=== PATIENT | female | born 1960 | race Caucasian/White ===

== ENCOUNTER 2016-09-19 14:55 | Outpatient (CLI) | payer OTHER | END 2016-09-19 14:56 | disposition home or self-care (01) | DX: R05 Cough (principal); R50.9 Fever, unspecified ==

== ENCOUNTER 2017-02-18 06:06 | Emergency (ER) | payer OTHER ==
[2017-02-18 06:15] VITALS: BP 141/95
--- NOTE | 2017-02-18 06:17 | ED Physician Documentation ---
PD HPI HEAD INJURY - Stated complaint Stated Complaint: L EYE BROW LAC - Chief complaint Chief Complaint: Laceration - History obtained from History obtained from: Patient - History of Present Illness Mechanism of head injury: Fell Where head injury occurred: Home Timing - onset: Enter time (03:00) Location of injury: Left Contributing factors: No: Anticoagulated, Intoxicated Recently seen: Not recently seen - Additional information Additional information: At approximately 3 AM, patient fell while sleep walking. She thus does not know exactly what caused her to fall, but as soon as she fell, she became aware of the situation and so she knows her face struck the corner of a piece of furniture, causing a facial laceration. Review of Systems Skin: reports: Laceration (s) Musculoskeletal: denies: Neck pain, Back pain Neurologic: reports: Head injury. denies: Headache, LOC PD PAST MEDICAL HISTORY - Past Medical History Past Medical History: No - Past Surgical History Past Surgical History: Yes - Present Medications Home Medications: Ambulatory Orders Medication Instructions Recorded Confirmed traZODone [Desyrel] 100 mg PO HS PRN 11/29/12 02/18/17 Methocarbamol 500 mg PO DAILY 02/18/17 02/18/17 - Allergies Allergies/Adverse Reactions: Allergies Allergy/AdvReac Type Severity Reaction Status Date / Time No Known Drug Allergies Allergy Verified 02/18/17 06:13 - Social History Does the pt smoke?: Yes Smoking Status: Current every day smoker Does the pt drink ETOH?: Yes Does the pt have substance abuse?: No - Immunizations Immunizations are current?: No Immunizations: TDAP >10years/unknown PD ED PE NORMAL - Vitals Vital signs reviewed: Yes - General General: Alert and oriented X 3, No acute distress, Well developed/nourished - HEENT HEENT: PERRL, EOMI - Neck Neck: No bony TTP PD ED PE EXPANDED - HEENT HEENT Visual: 1 - laceration (1.5 cm) Results - Vitals Vitals: Vital Signs - 24 hr 02/18/17 06:10 Temperature 36.5 C Heart Rate 66 Respiratory 16 Rate Blood Pressure 141/95 H O2 Saturation 100 Oxygen O2 Source Room air Procedures - Laceration (location) Face left Length in cm: 1.5 Wound type: Curved Neurovascular status: Sensory intact, Motor intact, Vascular intact Tendon involvement: Tendon intact Anesthesia: Lidocaine 1% Skin layer closure: Nylon, Running, Size #-0 - enter number (6-0) Other: Patient tolerated well, No complications, Neurovascular intact, Tetanus UTD Complexity: Simple PD MEDICAL DECISION MAKING - ED course Complexity details: considered differential, d/w patient Departure - Departure Disposition: 01 Home, Self Care Clinical Impression: Laceration Condition: Good Instructions: ED Laceration Facial Sutr Tape Follow-Up: Noni Garcia PA-C [Primary Care Provider] - (7-10 days for suture removal) Discharge Date/Time: 02/18/17 07:06
[2017-02-18] MEDS ORDERED: LIDOCAINE 1% 2 ML VIAL ONE ×2 (06:23→06:25)
[2017-02-18] MEDS ORDERED: BACITRACIN OINT TOP STA (06:56)
== END 2017-02-18 07:06 | disposition home or self-care (01) ==
LOC: ED 06:06
DX: S01.112A Laceration without foreign body of left eyelid and periocular area, initial encounter (principal); W01.0XXA Fall on same level from slipping, tripping and stumbling without subsequent striking against object, initial encounter; Y92.019 Unspecified place in single-family (private) house as the place of occurrence of the external cause; F17.200 Nicotine dependence, unspecified, uncomplicated
CPT/HCPCS: 12011; 99282; 99283

== ENCOUNTER 2017-02-23 14:25 | Emergency (ER) | payer OTHER ==
[2017-02-23 14:33] VITALS: BP 170/88
[2017-02-23] MEDS ORDERED: LIDOCAINE 1%-EPI 1:100000 20 ML MDV SUBQ STA (14:38)
[2017-02-23] MEDS ORDERED: LIDOCAINE MPF 1%-EPI 1:200000 30 ML VIAL ONE (14:41)
--- NOTE | 2017-02-23 14:53 | ED Physician Documentation ---
History of Present Illness - Stated complaint Stated Complaint: R ARM BRUISING,BUMP - Chief complaint Chief Complaint: General - History obtained from History obtained from: Patient - History of Present Illness Timing: How many weeks ago (1) Pain level max: 3 Pain level now: 3 Improved by: nothing Worsened by: nothing - Additonal information Additional information: Patient is a 56-year-old female who states that she fell one week ago and has noted increased bruising to the right forearm along with a "bump". States that she is concerned that may be infected. Review of Systems Constitutional: denies: Fever, Chills Nose: denies: Rhinorrhea / runny nose, Congestion Respiratory: denies: Cough GI: denies: Abdominal Pain, Nausea, Vomiting, Diarrhea Skin: denies: Rash Musculoskeletal: denies: Neck pain, Back pain Neurologic: denies: Headache PD PAST MEDICAL HISTORY - Past Medical History Neuro: None - Past Surgical History Past Surgical History: Yes - Present Medications Home Medications: Ambulatory Orders Medication Instructions Recorded Confirmed traZODone [Desyrel] 100 mg PO HS PRN 11/29/12 02/23/17 Methocarbamol 500 mg PO DAILY 02/18/17 02/23/17 - Allergies Allergies/Adverse Reactions: Allergies Allergy/AdvReac Type Severity Reaction Status Date / Time No Known Drug Allergies Allergy Verified 02/23/17 14:34 - Social History Does the pt smoke?: Yes Smoking Status: Current every day smoker Does the pt drink ETOH?: Yes Does the pt have substance abuse?: No - Immunizations Immunizations are current?: No Immunizations: TDAP >10years/unknown - POLST Patient has POLST: No PD ED PE NORMAL - Vitals Vital signs reviewed: Yes - General General: Alert and oriented X 3, No acute distress - Derm Derm: Warm and dry - Extremities Extremities: Other (R forearm distal/ventral aspect - 6cm ecchymosis, 0.5x1cm indurated area. NVI.) - Neuro Neuro: Alert and oriented X 3 - Psych Psych: Normal mood, Normal affect Results - Vitals Vitals: Vital Signs - 24 hr 02/23/17 14:31 Temperature 36.7 C Heart Rate 69 Respiratory 15 Rate Blood Pressure 170/88 H O2 Saturation 97 Oxygen O2 Source Room air Procedures - General procedure General procedure: R forearm hematoma - Area was cleansed with ChloraPrep. Anesthetized with 1% lidocaine with epinephrine. Incision made, clot expressed. No infection. Neurovascularly intact. Patient tolerated well PD MEDICAL DECISION MAKING - ED course Complexity details: considered differential, d/w patient ED course: Patient is a 56-year-old female who presents with a hematoma to the right forearm. This was opened as there is concern for infected hematoma. No infection found. Steri-Strips placed over the wound. Tolerated well. Warnings of infection and instructions on wound care given at bedside. Also counseled on how to minimize scarring. Patient counseled regarding signs and symptoms for which I believe and urgent re-evaluation would be necessary. Patient with good understanding of and agreement to plan and is comfortable going home at this time This document was made in part using voice recognition software. While efforts are made to proofread this document, sound alike and grammatical errors may occur. Departure - Departure Disposition: 01 Home, Self Care Clinical Impression: Hematoma Condition: Good Instructions: ED Hematoma Follow-Up: Noni Garcia PA-C [Primary Care Provider] - Within 1 week (for wound check) Comments: Return if you worsen. You can apply warm compresses at home. Your blood pressure was elevated today on check in to the emergency department. This does not mean that you have hypertension, it is a common phenomenon to check into the emergency department and have elevated blood pressure. I recommend that you see your primary care physician within the week to have it rechecked when you're feeling better. Discharge Date/Time: 02/23/17 15:00
== END 2017-02-23 15:00 | disposition home or self-care (01) ==
LOC: ED 14:25
DX: S50.11XA Contusion of right forearm, initial encounter (principal); W19.XXXA Unspecified fall, initial encounter
CPT/HCPCS: 11740; 99282; 99283

== ENCOUNTER 2017-06-10 15:58 | Outpatient (CLI) | payer OTHER ==
[2017-06-10 15:53] LABS: BASOPHILS % (AUTO) 0.5 %; EOSINOPHILS # (AUTO) 0.1 10^3/uL (0.0-0.7); EOSINOPHILS % (AUTO) 1.3 %; HCT - HEMATOCRIT 42.6 % (37.0-47.0); HGB - HEMOGLOBIN 14.6 g/dL (12.0-16.0); LYMPHOCYTES # (AUTO) 1.1 10^3/uL (1.5-3.5); LYMPHOCYTES % (AUTO) 23.1 %; MEAN CORPUSCULAR HGB CONC 34.2 g/dL (32.0-36.0); MEAN CORPUSCULAR VOLUME 90.7 fL (81.0-99.0); MEAN PLATELET VOLUME 8.2 fL (7.9-10.8); MONOCYTES # (AUTO) 0.4 10^3/uL (0.0-1.0); MONOCYTES % (AUTO) 8.1 %; NEUTROPHILS # (AUTO) 3.1 10^3/uL (1.5-6.6); NUCLEATED RED BLOOD CELLS AUTO 0.1 /100WBC; RED CELL DISTRIBUTION WIDTH 13.1 % (12.0-15.0); UNCORRECTED WHITE BLOOD COUNT 4.7 x10^3/uL; WHITE BLOOD COUNT 4.7 x10^3/uL (4.8-10.8)
[2017-06-10 16:05] LABS: ALBUMIN/GLOBULIN RATIO 1.6 (1.0-2.2); BILIRUBIN,TOTAL 0.9 mg/dL (0.2-1.0); CALCIUM 9.4 mg/dL (8.5-10.3); CREATININE 0.7 mg/dL (0.4-1.0); TOTAL PROTEIN 7.1 g/dL (6.7-8.2)
== END 2017-06-10 15:59 | disposition home or self-care (01) ==
LOC: LAB.R 15:58
PROVIDERS: ATTEND Physician Assistant Medical
DX: R10.13 Epigastric pain (principal)
CPT/HCPCS: 80053; 82150; 83690; 85025

== ENCOUNTER 2017-06-15 08:40 | Emergency (ER) | payer OTHER ==
[2017-06-15] MEDS ORDERED: LORazepam 0.5 MG TABLET PO STA (09:09)
[2017-06-15] MEDS ORDERED: SODIUM CHLORIDE 0.9% 1,000 ML IV ONE (09:09)
[2017-06-15] MEDS ORDERED: ONDANSETRON 4 MG/2 ML VIAL IVP STA (09:13)
[2017-06-15] MEDS ORDERED: ONDANSETRON 4 MG/2 ML VIAL ONE (09:17)
[2017-06-15] MEDS ORDERED: LORazepam 2 MG/ML SYRINGE ONE ×2 (09:17→10:43)
[2017-06-15] MEDS ORDERED: LORazepam 0.5 MG TABLET ONE (09:21)
[2017-06-15 09:26] LABS: BASOPHILS % (AUTO) 0.7 %; EOSINOPHILS % (AUTO) 0.6 %; HCT - HEMATOCRIT 42.1 % (37.0-47.0); HGB - HEMOGLOBIN 14.8 g/dL (12.0-16.0); LYMPHOCYTES # (AUTO) 1.4 10^3/uL (1.5-3.5); LYMPHOCYTES % (AUTO) 23.8 %; MEAN CORPUSCULAR HEMOGLOBIN 31.3 pg (27.0-31.0); MEAN CORPUSCULAR HGB CONC 35.2 g/dL (32.0-36.0); MEAN CORPUSCULAR VOLUME 88.9 fL (81.0-99.0); MEAN PLATELET VOLUME 8.6 fL (7.9-10.8); MONOCYTES # (AUTO) 0.5 10^3/uL (0.0-1.0); MONOCYTES % (AUTO) 8.4 %; NEUTROPHILS # (AUTO) 3.8 10^3/uL (1.5-6.6); NEUTROPHILS % (AUTO) 66.5 %; NUCLEATED RED BLOOD CELLS AUTO 0.1 /100WBC; RED BLOOD COUNT 4.74 10^6/uL (4.20-5.40); RED CELL DISTRIBUTION WIDTH 12.7 % (12.0-15.0); UNCORRECTED WHITE BLOOD COUNT 5.8 x10^3/uL; WHITE BLOOD COUNT 5.8 x10^3/uL (4.8-10.8)
[2017-06-15 09:38] LABS: ALBUMIN/GLOBULIN RATIO 1.7 (1.0-2.2); BILIRUBIN,TOTAL 0.7 mg/dL (0.2-1.0); BUN - BLOOD UREA NITROGEN 15 mg/dL (6-20); CARBON DIOXIDE - CO2 22 mmol/L (21-32); CHLORIDE 97 mmol/L (101-111); CREATININE 0.8 mg/dL (0.4-1.0); GFR - MDRD 75 (>89); GLUCOSE 115 mg/dL (70-100); LIPASE 31 U/L (22-51); POTASSIUM 3.5 mmol/L (3.5-5.0); SALICYLATE < 6.0 mg/dL; SODIUM 135 mmol/L (135-145); TOTAL PROTEIN 7.7 g/dL (6.7-8.2)
[2017-06-15 09:49] LABS: ACETAMINOPHEN < 10 ug/mL (10-30)
[2017-06-15] MEDS ORDERED: LORazepam 2 MG/ML SYRINGE IVP STA (09:53)
--- NOTE | 2017-06-15 10:06 | ED Physician Documentation ---
History of Present Illness - Stated complaint Stated Complaint: WITHDRAWLS/VOMITING - Chief complaint Chief Complaint: General - History obtained from History obtained from: Patient (pt states that her last drink was 1 week ago and her last pill was 5 days ago. She staes that she is having withdraws.) Review of Systems Ten Systems: 10 systems reviewed and negative Constitutional: denies: Fever Throat: denies: Sore throat Cardiac: denies: Chest pain / pressure, Palpitations Respiratory: denies: Dyspnea, Cough GI: denies: Nausea, Vomiting, Constipation, Diarrhea : denies: Dysuria, Frequency Skin: denies: Rash, Lesions Psychiatric: reports: Depressed, Anxiety. denies: Suicidal, Homicidal, Hallucinations PD PAST MEDICAL HISTORY - Past Medical History Neuro: None - Past Surgical History Past Surgical History: Yes - Present Medications Home Medications: Ambulatory Orders Medication Instructions Recorded Confirmed traZODone [Desyrel] 100 mg PO HS PRN 11/29/12 06/15/17 Methocarbamol 500 mg PO DAILY 02/18/17 06/15/17 LORazepam [Ativan] 0.5 mg PO Q6H PRN #3 tablet 06/15/17 - Allergies Allergies/Adverse Reactions: Allergies Allergy/AdvReac Type Severity Reaction Status Date / Time No Known Drug Allergies Allergy Verified 06/15/17 08:57 - Social History Does the pt smoke?: Yes Smoking Status: Current every day smoker Does the pt drink ETOH?: Yes Does the pt have substance abuse?: No - Immunizations Immunizations are current?: No Immunizations: TDAP >10years/unknown - POLST Patient has POLST: No PD ED PE NORMAL - Vitals Vital signs reviewed: Yes - General General: Alert and oriented X 3 - HEENT HEENT: Atraumatic, PERRL - Cardiac Cardiac: RRR, No murmur - Respiratory Respiratory: No respiratory distress - Abdomen Abdomen: Soft, Non tender, Non distended - Derm Derm: Normal color, Warm and dry, No rash - Neuro Neuro: Alert and oriented X 3 Eye Opening: Spontaneous Motor: Obeys Commands Verbal: Oriented (anxious) GCS Score: 15 Results - Vitals Vitals: Vital Signs - 24 hr 06/15/17 06/15/17 06/15/17 08:51 10:33 12:00 Temperature 36.6 C 36.9 C 36.6 C Heart Rate 64 700 H 67 Respiratory 20 16 15 Rate Blood Pressure 172/106 H 152/94 H 143/94 H O2 Saturation 100 96 99 Oxygen O2 Source Room air - EKG (time done) 0958 Rate: Rate (enter#) Rhythm: NSR [place]: Normal Intervals: Normal IN, QRS normal QRS: Normal Ischemia: Normal ST segments - Labs Labs: Laboratory Tests 06/15/17 06/15/17 06/15/17 09:00 09:00 09:00 WBC 5.8 RBC 4.74 Hgb 14.8 Hct 42.1 MCV 88.9 MCH 31.3 H MCHC 35.2 RDW 12.7 Plt Count 154 MPV 8.6 Neut # 3.8 Lymph # 1.4 L [place] # 0.5 Eos # 0.0 Baso # 0.0 Absolute Nucleated RBC 0.00 Nucleated RBC % 0.1 Sodium 135 Potassium 3.5 Chloride 97 L Carbon Dioxide 22 Anion Gap 16.0 H BUN 15 Creatinine 0.8 Estimated GFR (MDRD) 75 L Glucose 115 H Calcium 10.0 Total Bilirubin 0.7 AST 27 ALT 30 Alkaline Phosphatase 65 Total Protein 7.7 Albumin 4.8 Globulin 2.9 Albumin/Globulin Ratio 1.7 Lipase 31 HCG, Quant 2.52 Urine Color Urine Clarity Urine pH Ur Specific [place] Urine Protein Urine Glucose (UA) Urine Ketones Urine Occult Blood Urine Nitrite Urine Bilirubin Urine Urobilinogen Ur Leukocyte Esterase Urine RBC Urine WBC Ur Squamous Epith Cells Urine Bacteria Ur Microscopic Review Urine Culture Comments Salicylates < 6.0 Urine Opiates Screen Ur Oxycodone Screen Urine Methadone Screen Ur Propoxyphene Screen Acetaminophen < 10 L Ur Barbiturates Screen Ur Tricyclics Screen Ur Phencyclidine Scrn Ur Amphetamine Screen U Methamphetamines Scrn U Benzodiazepines Scrn Urine Cocaine Screen U Cannabinoids Screen Ethyl Alcohol < 5.0 06/15/17 11:50 WBC RBC Hgb Hct MCV MCH MCHC RDW Plt Count MPV Neut # Lymph # [place] # Eos # Baso # Absolute Nucleated RBC Nucleated RBC % Sodium Potassium Chloride Carbon Dioxide Anion Gap BUN Creatinine Estimated GFR (MDRD) Glucose Calcium Total Bilirubin AST ALT Alkaline Phosphatase Total Protein Albumin Globulin Albumin/Globulin Ratio Lipase HCG, Quant Urine Color YELLOW Urine Clarity CLEAR Urine pH 8.0 H Ur Specific [place] 1.015 Urine Protein NEGATIVE Urine Glucose (UA) NEGATIVE Urine Ketones 15 H Urine Occult Blood NEGATIVE Urine Nitrite NEGATIVE Urine Bilirubin NEGATIVE Urine Urobilinogen 0.2 (NORMAL) Ur Leukocyte Esterase MODERATE H Urine RBC 0-5 Urine WBC 6-10 H Ur Squamous Epith Cells MOD Squamous H Urine Bacteria Rare Ur Microscopic Review INDICATED Urine Culture Comments NOT INDICATED Salicylates Urine Opiates Screen NEGATIVE Ur Oxycodone Screen NEGATIVE Urine Methadone Screen NEGATIVE Ur Propoxyphene Screen NEGATIVE Acetaminophen Ur Barbiturates Screen NEGATIVE Ur Tricyclics Screen NEGATIVE Ur Phencyclidine Scrn NEGATIVE Ur Amphetamine Screen NEGATIVE U Methamphetamines Scrn NEGATIVE U Benzodiazepines Scrn POSITIVE H Urine Cocaine Screen NEGATIVE U Cannabinoids Screen POSITIVE H Ethyl Alcohol PD MEDICAL DECISION MAKING - ED course Complexity details: d/w patient, d/w family ED course: pt w/o SI or HI. is 1 week from last drink and 4 days since last pill. medically cleared. Was evaluated by social work and given resources. No indication for admission today. family will call insurance tomorrow to see who they can go and see. they were given return precautions. Departure - Departure Disposition: 01 Home, Self Care Clinical Impression: Substance abuse, Withdrawal from opioids Condition: Good Instructions: ED Withdrawal Narcotic Follow-Up: Noni Garcia PA-C [Primary Care Provider] - Prescriptions: LORazepam [Ativan] 0.5 mg PO Q6H PRN #3 tablet PRN Reason: Anxiety Comments: Call the numbers you were provided tomorrow for a follow up.
[2017-06-15 12:02] LABS: BILIRUBIN,URINE NEGATIVE (NEGATIVE)
[2017-06-15 12:20] LABS: UA w/ MICROSCOPIC CHARGE YES
[2017-06-15 12:22] LABS: UR CULTURE IF IND NOT INDICATED
[2017-06-15 12:54] VITALS: BP 149/92
== END 2017-06-15 13:04 | disposition home or self-care (01) ==
LOC: ED 08:40
DX: F11.23 Opioid dependence with withdrawal (principal); F17.200 Nicotine dependence, unspecified, uncomplicated
CPT/HCPCS: 36415; 80053; 80306; 80307; 80320; 80329; 81001; 83690; 84702; 85025; 93005; 96361; 96374; 96375; 99284; A9270; J2060; 81003; 87086

== ENCOUNTER 2017-08-07 09:46 | Outpatient (CLI) | payer OTHER ==
[2017-08-07 10:31] LABS: ALBUMIN 4.1 g/dL (3.2-5.5); ALBUMIN/GLOBULIN RATIO 1.6 (1.0-2.2); ALKALINE PHOSPHATASE 50 IU/L (42-121); ALT ALANINE AMINOTRANSFERASE 48 IU/L (10-60); AST ASPARTATE AMINOTRANSFERASE 35 IU/L (10-42); BILIRUBIN,TOTAL 0.6 mg/dL (0.2-1.0); BUN - BLOOD UREA NITROGEN 24 mg/dL (6-20); CARBON DIOXIDE - CO2 30 mmol/L (21-32); CHLORIDE 104 mmol/L (101-111); CREATININE 0.7 mg/dL (0.4-1.0); GFR - MDRD 87 (>89); GLUCOSE 96 mg/dL (70-100); SODIUM 140 mmol/L (135-145); TOTAL PROTEIN 6.7 g/dL (6.7-8.2)
[2017-08-07 11:20] LABS: CRP - C-REACTIVE PROTEIN < 1.0 mg/dL (0-1.0)
[2017-08-07 12:06] LABS: RHEUMATOID FACTOR NEGATIVE (Negative)
[2017-08-09 11:57] LABS: ANA SCREEN NEGATIVE (NEGATIVE)
== END 2017-08-07 09:47 | disposition home or self-care (01) ==
LOC: LAB 09:46
PROVIDERS: ATTEND Physician Assistant Medical
DX: M25.50 Pain in unspecified joint (principal); F41.8 Other specified anxiety disorders; Z79.899 Other long term (current) drug therapy
CPT/HCPCS: 36415; 80053; 84443; 85651; 86038; 86140; 86430

== ENCOUNTER 2017-08-19 14:40 | Emergency (ER) | payer OTHER ==
--- NOTE | 2017-08-19 15:15 | ED Physician Documentation ---
History of Present Illness - Stated complaint Stated Complaint: SLURRED SPEECH - Chief complaint Chief Complaint: General - History obtained from History obtained from: Patient - History of Present Illness Timing: Other (56-year-old woman with history of alcohol abuse in remission presents because her coworkers thought she had slurred speech and was walking funny over the last couple of hours. She feels fine. She is on some new medications but we do not have a complete medication list, she says she has not been drinking.) Review of Systems Ten Systems: 10 systems reviewed and negative Constitutional: denies: Fever, Chills Throat: denies: Dental pain / toothache, Sore throat Cardiac: denies: Chest pain / pressure, Palpitations Respiratory: denies: Dyspnea, Cough PD PAST MEDICAL HISTORY - Past Medical History Neuro: None - Past Surgical History Past Surgical History: Yes - Present Medications Home Medications: Ambulatory Orders Medication Instructions Recorded Confirmed traZODone [Desyrel] 100 mg PO HS PRN 11/29/12 08/19/17 Methocarbamol 500 mg PO DAILY 02/18/17 08/19/17 Generic For Suboxone 08/19/17 Serazone 0 mg DAILY 08/19/17 Serzone 0 mg DAILY 08/19/17 - Allergies Allergies/Adverse Reactions: Allergies Allergy/AdvReac Type Severity Reaction Status Date / Time No Known Drug Allergies Allergy Verified 06/15/17 08:57 - Social History Does the pt smoke?: Yes Smoking Status: Current every day smoker Does the pt drink ETOH?: Yes Does the pt have substance abuse?: No - Immunizations Immunizations are current?: No Immunizations: TDAP >10years/unknown - POLST Patient has POLST: No PD ED PE NORMAL - Vitals Vital signs reviewed: Yes - General General: Alert and oriented X 3, No acute distress - HEENT HEENT: PERRL, EOMI (She has horizontal nystagmus in both directions) - Neck Neck: Supple, no meningeal sign, No bony TTP - Cardiac Cardiac: RRR, No murmur - Respiratory Respiratory: No respiratory distress, Clear bilaterally - Abdomen Abdomen: Normal bowel sounds, Soft, Non tender - Neuro Neuro: Alert and oriented X 3, Normal speech, Other (Normal finger to nose and heel to lyman testing, stroke scale is 0.) Eye Opening: Spontaneous Motor: Obeys Commands Results - Vitals Vitals: Vital Signs - 24 hr 08/19/17 14:43 Temperature 35.9 C L Heart Rate 107 H Respiratory 18 Rate Blood Pressure 122/93 H O2 Saturation 99 Oxygen O2 Source Room air - Labs Labs: Laboratory Tests 08/19/17 08/19/17 08/19/17 14:50 15:46 15:46 WBC 6.5 RBC 4.36 Hgb 13.3 Hct 38.1 MCV 87.2 MCH 30.6 MCHC 35.0 RDW 12.9 Plt Count 108 L MPV 7.6 L Neut # 4.4 Lymph # 1.4 L [place] # 0.4 Eos # 0.2 Baso # 0.0 Absolute Nucleated RBC 0.01 Nucleated RBC % 0.1 Sodium 142 Potassium 4.1 Chloride 105 Carbon Dioxide 26 Anion Gap 11.0 BUN 16 Creatinine 0.8 Estimated GFR (MDRD) 75 L Glucose 96 Calcium 9.5 Total Bilirubin 0.6 AST 25 ALT 32 Alkaline Phosphatase 55 Total Protein 7.1 Albumin 4.3 Globulin 2.8 Albumin/Globulin Ratio 1.5 Lipase 23 Urine Opiates Screen NEGATIVE Ur Oxycodone Screen POSITIVE H Urine Methadone Screen NEGATIVE Ur Propoxyphene Screen NEGATIVE Ur Barbiturates Screen NEGATIVE Ur Tricyclics Screen POSITIVE H Ur Phencyclidine Scrn NEGATIVE Ur Amphetamine Screen NEGATIVE U Methamphetamines Scrn NEGATIVE U Benzodiazepines Scrn POSITIVE H Urine Cocaine Screen NEGATIVE U Cannabinoids Screen POSITIVE H Ethyl Alcohol < 5.0 - Rads (name of study) CT Head Radiology: EMP read contemporaneously (Normal) PD MEDICAL DECISION MAKING - ED course ED course: She was sent from work by coworkers who noticed slurred speech and difficulty walking. Her stroke scale is negative but she does have nystagmus in both directions suggesting a drug or alcohol-related cause. Her head CT is negative , her drug screen is positive for multiple things that cannot be explained by her prescription medications including oxycodone and benzodiazepines. She Denies the ingestion of any of these substances. The tricyclics can be explained probably by the trazodone. Departure - Departure Disposition: 01 Home, Self Care Clinical Impression: Slurred speech, Nystagmus, Positive urine drug screen Condition: Good Record reviewed to determine appropriate education?: Yes Comments: Avoid drugs and alcohol. Return if worse. Follow-up with your physician.
[2017-08-19 15:23] LABS: MUDS CUTOFF CONCENTRATIONS CUTOFF CONC BELOW:
[2017-08-19 15:35] LABS: AMPHETAMINE SCREEN,URINE NEGATIVE (NEGATIVE); BENZODIAZEPINES SCREEN, URINE POSITIVE (NEGATIVE); COCAINE SCREEN URINE NEGATIVE (NEGATIVE); METHADONE SCREEN, URINE NEGATIVE (NEGATIVE); METHAMPHETAMINES SCREEN, URINE NEGATIVE (NEGATIVE); OPIATE SCREEN, URINE NEGATIVE (NEGATIVE); TRICYCLIC ANTIDEPRESSANT,URINE POSITIVE (NEGATIVE)
[2017-08-19 15:36] LABS: OXYCODONE SCREEN, URINE POSITIVE (NEGATIVE); PROPOXYPHENE SCREEN, URINE NEGATIVE (NEGATIVE)
[2017-08-19 15:51] LABS: BASOPHILS % (AUTO) 0.6 %; EOSINOPHILS # (AUTO) 0.2 10^3/uL (0.0-0.7); EOSINOPHILS % (AUTO) 3.7 %; HGB - HEMOGLOBIN 13.3 g/dL (12.0-16.0); LYMPHOCYTES # (AUTO) 1.4 10^3/uL (1.5-3.5); LYMPHOCYTES % (AUTO) 21.2 %; MEAN CORPUSCULAR HEMOGLOBIN 30.6 pg (27.0-31.0); MEAN CORPUSCULAR VOLUME 87.2 fL (81.0-99.0); MEAN PLATELET VOLUME 7.6 fL (7.9-10.8); MONOCYTES # (AUTO) 0.4 10^3/uL (0.0-1.0); MONOCYTES % (AUTO) 6.4 %; NEUTROPHILS # (AUTO) 4.4 10^3/uL (1.5-6.6); NEUTROPHILS % (AUTO) 68.1 %; PLT - PLATELET COUNT 108 10^3/uL (130-450); RED BLOOD COUNT 4.36 10^6/uL (4.20-5.40); RED CELL DISTRIBUTION WIDTH 12.9 % (12.0-15.0); WHITE BLOOD COUNT 6.5 x10^3/uL (4.8-10.8)
--- NOTE | 2017-08-19 15:52 | CT Report ---
EXAM: CT HEAD EXAM DATE: 08/19/2017 03:27 PM. CLINICAL HISTORY: Slurred speech. COMPARISON: None. TECHNIQUE: Multiaxial CT images were obtained from the foramen magnum to the vertex. Reformats: Coron al. IV contrast: None. In accordance with CT protocol optimization, one or more of the following dose reduction techniques w ere utilized for this exam: automated exposure control, adjustment of mA and/or KV based on patient s ize, or use of iterative reconstructive technique. FINDINGS: Parenchyma: No intraparenchymal hemorrhage. No evidence of mass, midline shift, or CT findings of inf arction. Carmichael-white differentiation is distinct. Extraaxial Spaces: Normal for age. No subdural or epidural collections identified. Ventricles: Normal in size and position. Sinuses and Orbits: Imaged paranasal sinuses, orbits, and mastoids show no significant abnormality. Bones: No evidence of fracture or calvarial defect. Other: None. IMPRESSION: Normal head CT. [facility] Referring Provider Line: [phone] SITE ID: [id number]
[2017-08-19 16:02] LABS: ALBUMIN 4.3 g/dL (3.2-5.5); ALBUMIN/GLOBULIN RATIO 1.5 (1.0-2.2); ALKALINE PHOSPHATASE 55 IU/L (42-121); ALT ALANINE AMINOTRANSFERASE 32 IU/L (10-60); AST ASPARTATE AMINOTRANSFERASE 25 IU/L (10-42); BILIRUBIN,TOTAL 0.6 mg/dL (0.2-1.0); BUN - BLOOD UREA NITROGEN 16 mg/dL (6-20); CALCIUM 9.5 mg/dL (8.5-10.3); CARBON DIOXIDE - CO2 26 mmol/L (21-32); CHLORIDE 105 mmol/L (101-111); CREATININE 0.8 mg/dL (0.4-1.0); GFR - MDRD 75 (>89); GLUCOSE 96 mg/dL (70-100); LIPASE 23 U/L (22-51); SODIUM 142 mmol/L (135-145); TOTAL PROTEIN 7.1 g/dL (6.7-8.2)
[2017-08-19 16:22] VITALS: BP 123/95
== END 2017-08-19 16:25 | disposition home or self-care (01) ==
LOC: ED 14:40
DX: R47.81 Slurred speech (principal); H55.00 Unspecified nystagmus; F10.11 Alcohol abuse, in remission; F17.200 Nicotine dependence, unspecified, uncomplicated
CPT/HCPCS: 36415; 70450; 80053; 80306; 80320; 83690; 85025; 99283; 99284

== ENCOUNTER 2017-10-20 09:38 | Emergency (ER) | payer OTHER ==
[2017-10-20] MEDS ORDERED: ONDANSETRON ODT 4 MG TABLET TL STA (10:05)
[2017-10-20 10:15] VITALS: BP 175/99
== END 2017-10-20 10:51 | disposition left against medical advice (07) ==
LOC: ED 09:38
DX: Z53.21 Procedure and treatment not carried out due to patient leaving prior to being seen by health care provider (principal)
CPT/HCPCS: 80053; 83690; 85025; 93005

== ENCOUNTER 2018-06-08 09:32 | Outpatient (CLI) | payer OTHER ==
[2018-06-08 14:07] LABS: BASOPHILS % (AUTO) 0.7 %; EOSINOPHILS # (AUTO) 0.1 10^3/uL (0.0-0.7); EOSINOPHILS % (AUTO) 1.6 %; HGB - HEMOGLOBIN 13.5 g/dL (12.0-16.0); LYMPHOCYTES # (AUTO) 1.6 10^3/uL (1.5-3.5); LYMPHOCYTES % (AUTO) 27.1 %; MEAN CORPUSCULAR HEMOGLOBIN 29.9 pg (27.0-31.0); MEAN CORPUSCULAR VOLUME 85.5 fL (81.0-99.0); MEAN PLATELET VOLUME 9.3 fL (7.9-10.8); MONOCYTES # (AUTO) 0.4 10^3/uL (0.0-1.0); MONOCYTES % (AUTO) 6.1 %; NEUTROPHILS # (AUTO) 3.8 10^3/uL (1.5-6.6); NEUTROPHILS % (AUTO) 64.5 %; PLT - PLATELET COUNT 135 10^3/uL (130-450); RED BLOOD COUNT 4.52 10^6/uL (4.20-5.40); RED CELL DISTRIBUTION WIDTH 12.9 % (12.0-15.0)
[2018-06-08 14:23] LABS: PLATELET MORPHOLOGY NORMAL APPEARANCE (NORMAL)
[2018-06-08 14:32] LABS: ALBUMIN 4.8 g/dL (3.2-5.5); ALBUMIN/GLOBULIN RATIO 1.9 (1.0-2.2); ALKALINE PHOSPHATASE 62 IU/L (42-121); ALT ALANINE AMINOTRANSFERASE 13 IU/L (10-60); AST ASPARTATE AMINOTRANSFERASE 15 IU/L (10-42); BILIRUBIN,TOTAL 1.1 mg/dL (0.2-1.0); BUN - BLOOD UREA NITROGEN 23 mg/dL (6-20); CALCIUM 9.3 mg/dL (8.5-10.3); CARBON DIOXIDE - CO2 29 mmol/L (21-32); CHLORIDE 102 mmol/L (101-111); CHOL/HDL RATIO 2.4 (<4.4); CHOLESTEROL 232 mg/dL; CREATININE 0.8 mg/dL (0.4-1.0); GFR - MDRD 74 (>89); GLUCOSE 103 mg/dL (70-100); HDL CHOLESTEROL 95 mg/dL; LDL CHOLESTEROL,CALCULATED 128 mg/dL; LDL/HDL RATIO 1.3 (<4.4); SODIUM 138 mmol/L (135-145); TOTAL PROTEIN 7.3 g/dL (6.7-8.2); VLDL CHOLESTEROL 9 mg/dL
== END 2018-06-08 09:33 | disposition home or self-care (01) ==
LOC: LAB.R 09:32
PROVIDERS: ATTEND Physician Assistant Medical
DX: Z00.00 Encounter for general adult medical examination without abnormal findings (principal); D69.6 Thrombocytopenia, unspecified
CPT/HCPCS: 80053; 80061; 83721; 84443; 85025

== ENCOUNTER 2018-07-02 10:47 | Outpatient (CLI) | payer OTHER ==
[2018-07-02] MEDS ORDERED: IOVERSOL 320 100 ML VIAL IVP ONE ×2 (10:53→12:28)
[2018-07-02] MEDS ORDERED: IOVERSOL 320 50 ML VIAL ONE (10:53)
--- NOTE | 2018-07-02 12:11 | XRAY Report ---
Reason: TOBACCO DEPENDENCE REMISSION, THORACIC BACK PAIN,W Procedure Date: 07/02/2018 Accession Number: [id number] / [id number] Procedure: XR - Thoracic Spine 2 View CPT Code: FULL RESULT: EXAM: THORACIC SPINE RADIOGRAPHY EXAM DATE: 07/02/2018 11:02 AM. CLINICAL HISTORY: TOBACCO DEPENDENCE REMISSION, THORACIC BACK PAIN. COMPARISON: CHEST 2 VIEW PA/LAT 09/19/2016 3:00 PM. TECHNIQUE: 2 views. FINDINGS: Alignment: There is a mild upper thoracic kyphosis without meaningful single level loss of height which is stable compared to 2017. No spondylolisthesis or scoliosis. Bones: No fractures or bone lesions. Disks: Normal. Disk heights are maintained. Soft Tissues: Normal. The visualized lungs and cardiomediastinal silhouette are normal. IMPRESSION: No abnormality of the lower thoracic spine is detected. [facility]
--- NOTE | 2018-07-02 12:26 | XRAY Report ---
Reason: TOBACCO DEPENDENCE REMISSION, THORACIC BACK PAIN,W Procedure Date: 07/02/2018 Accession Number: [id number] / [id number] Procedure: XR - Chest 2 View X-Ray CPT Code: 59620 FULL RESULT: EXAM: CHEST RADIOGRAPHY EXAM DATE: 07/02/2018 11:02 AM. CLINICAL HISTORY: Tobacco dependence remission, thoracic back pain, with. COMPARISON: CHEST 2 VIEW PA/LAT 09/19/2016 3:00 PM. TECHNIQUE: 2 views. FINDINGS: Lungs/Pleura: No focal opacities evident. No pleural effusion. No pneumothorax. High volumes and relative diaphragmatic flattening. Mediastinum: Heart and mediastinal contours are unremarkable. Other: None. IMPRESSION: Suspect COPD. No superimposed airspace disease. [facility]
[2018-07-02] MEDS ORDERED: IOVERSOL 320 50 ML VIAL PO ONE (12:28)
--- NOTE | 2018-07-02 13:02 | CT Report ---
Reason: WEIGHT LOSS, CHANGE IN BOWEL HABIT Procedure Date: 07/02/2018 Accession Number: [id number] / [id number] Procedure: CT - Abdomen/Pelvis W/ CPT Code: FULL RESULT: EXAM: CT ABDOMEN AND PELVIS EXAM DATE: 07/02/2018 12:23 PM. CLINICAL HISTORY: Weight loss, change in bowel habits. COMPARISONS: None. TECHNIQUE: Routine helical CT imaging was performed through the abdomen and pelvis. IV contrast: ISOVUE 320 80mL. Enteric contrast: Yes. Reconstructions: Coronal and sagittal. In accordance with CT protocol optimization, one or more of the following dose reduction techniques were utilized for this exam: automated exposure control, adjustment of mA and/or KV based on patient size, or use of iterative reconstructive technique. FINDINGS: Lung Bases: Unremarkable. Liver: Hepatic hypodensities which are too small to characterize. No sizable masses. Gallbladder/Bile Ducts: Unremarkable. Spleen: Normal. Pancreas: Normal. Adrenal Glands: Normal. Kidneys: Normal. No masses or hydronephrosis. Peritoneal Cavity/Bowel: Normal. No free fluid, free air or adenopathy. No masses or acute inflammatory process. Pelvic Organs: Normal. The bladder and visualized pelvic organs are within normal limits. Vasculature: There is a prominent left gonadal venous varicosity with dilation, not seen on the right. Bones: Schmorl's node at the superior endplate of L4, no aggressive osseous lesions. Other: None. IMPRESSION: Prominent left gonadal venous varix. This is of uncertain clinical significance but can be seen with pelvic congestion syndrome. [facility]
== END 2018-07-02 10:48 | disposition home or self-care (01) ==
LOC: DI 10:47
PROVIDERS: ATTEND Physician Assistant Medical
DX: M54.6 Pain in thoracic spine (principal); R63.4 Abnormal weight loss; R19.4 Change in bowel habit; F17.201 Nicotine dependence, unspecified, in remission; I86.8 Varicose veins of other specified sites
CPT/HCPCS: 71046; 72070; 74177; Q9967

== ENCOUNTER 2018-09-03 07:52 | Day surgery (SDC) | payer OTHER ==
[~2018-09-03 07:52] MED LIST: LIDO GARGLE 30 ML BOTTLE ONE
[2018-09-03] MEDS ORDERED: LACTATED RINGERS 1,000 ML IV ONE ×2 (08:14→10:37)
[2018-09-03] MEDS ORDERED: MIDAZOLAM 2 MG/2 ML VIAL IVP ONE (09:38)
[2018-09-03] MEDS ORDERED: fentaNYL 250 MCG/5 ML VIAL IVP ONE (09:38)
[2018-09-03] MEDS ORDERED: LIDO GARGLE 30 ML BOTTLE TOP ONE (09:40)
[2018-09-03] MEDS ORDERED: LIDOCAINE-MPF 2% 5 ML VIAL IM ONE (10:15)
[2018-09-03] MEDS ORDERED: PROPOFOL 200 MG/20 ML VIAL IVP ONE (10:15)
[2018-09-03 11:45] VITALS: BP 109/83
== END 2018-09-03 07:53 | disposition home or self-care (01) ==
LOC: SDS 07:52
PROVIDERS: ATTEND Internal Medicine Gastroenterology
PROC: 0DB98ZX Excision of Duodenum, Via Natural or Artificial Opening Endoscopic, Diagnostic (ICD-10-PCS; 2018-09-03)
PROC: 0DB78ZX Excision of Stomach, Pylorus, Via Natural or Artificial Opening Endoscopic, Diagnostic (ICD-10-PCS; 2018-09-03)
PROC: 0D5L8ZZ Destruction of Transverse Colon, Via Natural or Artificial Opening Endoscopic (ICD-10-PCS; principal; 2018-09-03 09:15)
PROC: 0DBE8ZX Excision of Large Intestine, Via Natural or Artificial Opening Endoscopic, Diagnostic (ICD-10-PCS; 2018-09-03 09:15)
DX: K29.50 Unspecified chronic gastritis without bleeding (principal); D12.3 Benign neoplasm of transverse colon; K92.0 Hematemesis; R19.7 Diarrhea, unspecified; K59.00 Constipation, unspecified; I10 Essential (primary) hypertension; G89.29 Other chronic pain; M54.9 Dorsalgia, unspecified; G47.00 Insomnia, unspecified; G25.81 Restless legs syndrome; F32.9 Major depressive disorder, single episode, unspecified; M25.561 Pain in right knee; F10.11 Alcohol abuse, in remission; F11.11 Opioid abuse, in remission; Z79.1 Long term (current) use of non-steroidal anti-inflammatories (NSAID); Z87.891 Personal history of nicotine dependence
CPT/HCPCS: 43239; 45380; A9270; J3010; J7120

== ENCOUNTER 2018-09-10 13:01 | Outpatient (CLI) | payer OTHER ==
--- NOTE | 2018-09-10 16:03 | Mammography Report ---
Reason: MAMMOGRAPHIC SCREENING FOR BREAST CANCER Procedure Date: 09/10/2018 Accession Number: [id number] / [id number] Procedure: MARÍA - Screening Mammo w/Abdulkadir CPT Code: FULL RESULT: EXAM: Screening Mammo w/Abdulkadir DATE: 09/10/2018 2:27 PM CLINICAL HISTORY: Routine screening. History of prior right breast surgery. TECHNIQUE: Bilateral CC and MLO views were obtained. COMPARISON: 01/26/2016, 08/03/2014, 02/22/2013 and 05/10/2011 FINDINGS: There are scattered fibroglandular densities. Stable postbiopsy architectural distortion right breast 12:00 position. Stable biopsy clip left breast 12:00 position. No suspicious masses, clustered microcalcifications, or new regions of architectural distortion are identified. IMPRESSION: Benign findings RECOMMENDATION: Routine annual screening unless otherwise clinically indicated. BIRADS CATEGORY 2: Benign findings STANDARD QUALIFYING STATEMENTS: 1. This examination was not reviewed with the aid of Computer-Aided Detection (CAD). 2. A negative or benign imaging report should not preclude biopsy if clinically suspicious findings are present. 3. Dense breasts may obscure an underlying neoplasm. 4. This examination was reviewed with the aid of 3D breast imaging (tomosynthesis).
== END 2018-09-10 13:02 | disposition home or self-care (01) ==
LOC: DI 13:01
PROVIDERS: ATTEND Physician Assistant Medical
DX: Z12.31 Encounter for screening mammogram for malignant neoplasm of breast (principal)
CPT/HCPCS: 77063; 77067

== ENCOUNTER 2020-07-06 19:40 | Outpatient (CLI) | payer OTHER | END 2020-07-06 19:41 | disposition home or self-care (01) | LOC: COV 19:40 | PROVIDERS: ATTEND Family Medicine | DX: M79.10 Myalgia, unspecified site (principal); R53.83 Other fatigue; R68.83 Chills (without fever); R11.2 Nausea with vomiting, unspecified; Z20.828 Contact with and (suspected) exposure to other viral communicable diseases ==

== ENCOUNTER 2020-07-24 08:00 | Outpatient (CLI) | payer OTHER ==
[2020-07-24 17:59] LABS: BASOPHILS % (AUTO) 0.5 %; EOSINOPHILS # (AUTO) 0.1 10^3/uL (0.0-0.7); EOSINOPHILS % (AUTO) 1.4 %; HGB - HEMOGLOBIN 11.4 g/dL (12.0-16.0); LYMPHOCYTES # (AUTO) 1.1 10^3/uL (1.5-3.5); LYMPHOCYTES % (AUTO) 28.8 %; MEAN CORPUSCULAR HEMOGLOBIN 26.4 pg (27.0-31.0); MEAN CORPUSCULAR VOLUME 85.2 fL (81.0-99.0); MEAN PLATELET VOLUME 10.2 fL (7.9-10.8); MONOCYTES # (AUTO) 0.3 10^3/uL (0.0-1.0); NEUTROPHILS # (AUTO) 2.2 10^3/uL (1.5-6.6); PLT - PLATELET COUNT 109 10^3/uL (130-450); RED BLOOD COUNT 4.32 10^6/uL (4.20-5.40); WHITE BLOOD COUNT 3.6 x10^3/uL (4.8-10.8)
[2020-07-24 18:15] LABS: ALBUMIN 3.9 g/dL (3.2-5.5); ALBUMIN/GLOBULIN RATIO 1.5 (1.0-2.2); ALKALINE PHOSPHATASE 90 IU/L (42-121); ALT ALANINE AMINOTRANSFERASE 10 IU/L (10-60); AST ASPARTATE AMINOTRANSFERASE 11 IU/L (10-42); BILIRUBIN,TOTAL 0.4 mg/dL (0.2-1.0); BUN - BLOOD UREA NITROGEN 16 mg/dL (6-20); CALCIUM 8.2 mg/dL (8.5-10.3); CARBON DIOXIDE - CO2 27 mmol/L (21-32); CHLORIDE 103 mmol/L (101-111); CHOL/HDL RATIO 2.9 (<4.4); CHOLESTEROL 250 mg/dL; CREATININE 0.8 mg/dL (0.4-1.0); GLUCOSE 90 mg/dL (70-100); HDL CHOLESTEROL 87 mg/dL; LDL CHOLESTEROL,CALCULATED 143 mg/dL; LDL/HDL RATIO 1.6 (<4.4); SODIUM 137 mmol/L (135-145); TOTAL PROTEIN 6.5 g/dL (6.7-8.2); VLDL CHOLESTEROL 20 mg/dL
== END 2020-07-24 23:59 | disposition home or self-care (01) ==
LOC: LAB.WCP 08:00
PROVIDERS: ATTEND Nurse Practitioner
DX: I10 Essential (primary) hypertension (principal); E55.9 Vitamin D deficiency, unspecified
CPT/HCPCS: 36415; 80053; 80061; 82306; 83721; 84443; 85025

== ENCOUNTER 2020-09-04 08:00 | Outpatient (CLI) | payer OTHER ==
--- NOTE | 2020-09-04 09:31 | XRAY Report ---
PROCEDURE: Wrist 3 View BILAT INDICATIONS: CARPAL TUNNEL SYNDROME, BILATERAL TECHNIQUE: 4 views of the wrist were acquired. COMPARISON: None FINDINGS: Bones: No fractures or dislocations. Mild osteoarthritic changes are noted along radial aspect of bi lateral wrists with joint space narrowing and subchondral sclerosis more prominent at radiocarpal [place] nts and right first CMC joint. No bony erosive changes are seen. No suspicious bony lesions. Scaphoid view: No evidence of avascular necrosis. Soft tissues: No suspicious soft tissue calcifications. 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 No wrist fracture or dislocation. No bony erosive changes. No gross soft tissue abnormality is seen. Reviewed by: Jameel Adamson MD on 09/04/2020 9:29 AM PST Approved by: Jameel Adamson MD on 09/04/2020 9:29 AM PST Station ID: [id number]
== END 2020-09-04 23:59 | disposition home or self-care (01) ==
LOC: DI.N 08:00
PROVIDERS: ATTEND Orthopaedic Surgery
DX: G56.03 Carpal tunnel syndrome, bilateral upper limbs (principal); M19.032 Primary osteoarthritis, left wrist; M19.031 Primary osteoarthritis, right wrist

== ENCOUNTER 2021-07-19 09:21 | Outpatient (CLI) | payer OTHER ==
--- NOTE | 2021-07-19 15:55 | XRAY Report ---
PROCEDURE: Hand 3 View RT INDICATIONS: RIGHT HAND PAIN TECHNIQUE: 3 views of the hand(s) acquired. COMPARISON: None FINDINGS: Bones: Nondisplaced oblique fracture of the fourth metacarpal. Soft tissues: No suspicious soft tissue calcifications. IMPRESSION: Nondisplaced fourth metacarpal fracture. Reviewed by: Dora Pittman MD, PhD on 07/19/2021 3:53 PM PST Approved by: Dora Pittman MD, PhD on 07/19/2021 3:53 PM PST Station ID: [id number]
== END 2021-07-19 23:59 | disposition home or self-care (01) ==
LOC: DI.N 09:21
PROVIDERS: ATTEND Physician Assistant
DX: S62.394A Other fracture of fourth metacarpal bone, right hand, initial encounter for closed fracture (principal)

== ENCOUNTER 2021-11-15 10:25 | Outpatient (CLI) | payer OTHER ==
--- NOTE | 2021-11-15 17:10 | Ultrasound Report ---
PROCEDURE: Ext Limited Non Vascular INDICATIONS: LEFT LEG PAIN TECHNIQUE: Real-time scanning was performed of the lower leg , with image documentation. COMPARISON: Left lower extremity Doppler ultrasound 07/27/2021. FINDINGS: Ultrasound evaluation of the left lateral mid calf region and the superior medial calf region in the areas of pain demonstrates no discrete fluid collection to suggest a hematoma. No discrete mass ident ified. IMPRESSION: 1. No discrete mass or fluid collections identified in the areas of clinical concern. If clinically indicated, further evaluation may be obtained with MRI. Reviewed by: Davon Ugalde MD on 11/15/2021 5:08 PM PDT Approved by: Davon Ugalde MD on 11/15/2021 5:08 PM PDT Station ID: [id number]
== END 2021-11-15 10:26 | disposition home or self-care (01) ==
LOC: DI 10:25
PROVIDERS: ATTEND Physician Assistant
DX: M79.605 Pain in left leg (principal); M79.9 Soft tissue disorder, unspecified

== ENCOUNTER → 2022-01-22 | Outpatient (CLI) | payer OTHER | END | disposition EMS.NT | LOC: EMS 09:06 | DX: R06.09 Other forms of dyspnea (principal); R09.89 Other specified symptoms and signs involving the circulatory and respiratory systems; R05.9 Cough, unspecified ==

== ENCOUNTER 2022-01-24 10:55 | Outpatient (CLI) | payer OTHER ==
--- NOTE | 2022-01-24 13:51 | XRAY Report ---
PROCEDURE: Chest 2 View X-Ray INDICATIONS: UPPER RESPRITORY INFECTION TECHNIQUE: 2 view(s) of the chest. COMPARISON: 07/02/2018 FINDINGS: Surgical changes and devices: None. Lungs and pleura: No pleural effusions or pneumothorax. Lungs are clear. Mediastinum: Mediastinal contours are normal. Heart size is normal. Bones and chest wall: No suspicious bony abnormalities. Soft tissues appear unremarkable. IMPRESSION: Chest without acute cardiopulmonary abnormalities. No focal consolidation seen. Reviewed by: Mario Camp MD on 01/24/2022 1:50 PM PDT Approved by: Mario Camp MD on 01/24/2022 1:50 PM PDT Station ID: [id number]
== END 2022-01-24 10:56 | disposition home or self-care (01) ==
LOC: DI 10:55
PROVIDERS: ATTEND Physician Assistant Medical
DX: J06.9 Acute upper respiratory infection, unspecified (principal)

== ENCOUNTER 2022-01-25 09:38 | Outpatient (CLI) | payer OTHER ==
[2022-01-25 09:57] LABS: BASOPHILS % (AUTO) 0.6 %; EOSINOPHILS # (AUTO) 0.2 10^3/uL (0.0-0.7); EOSINOPHILS % (AUTO) 4.3 %; HCT - HEMATOCRIT 35.9 % (37.0-47.0); HGB - HEMOGLOBIN 10.9 g/dL (12.0-16.0); LYMPHOCYTES # (AUTO) 1.1 10^3/uL (1.5-3.5); LYMPHOCYTES % (AUTO) 22.2 %; MEAN CORPUSCULAR HEMOGLOBIN 22.9 pg (27.0-31.0); MEAN CORPUSCULAR HGB CONC 30.4 g/dL (32.0-36.0); MEAN CORPUSCULAR VOLUME 75.6 fL (81.0-99.0); MEAN PLATELET VOLUME 9.6 fL (7.9-10.8); MONOCYTES # (AUTO) 0.4 10^3/uL (0.0-1.0); MONOCYTES % (AUTO) 8.1 %; NEUTROPHILS # (AUTO) 3.1 10^3/uL (1.5-6.6); NEUTROPHILS % (AUTO) 64.6 %; PLT - PLATELET COUNT 189 10^3/uL (130-450); RED BLOOD COUNT 4.75 10^6/uL (4.20-5.40); RED CELL DISTRIBUTION WIDTH 16.5 % (12.0-15.0); WHITE BLOOD COUNT 4.8 x10^3/uL (4.8-10.8)
[2022-01-25 10:24] LABS: ALBUMIN 3.7 g/dL (3.2-5.5); ALBUMIN/GLOBULIN RATIO 1.2 (1.0-2.2); ALKALINE PHOSPHATASE 71 IU/L (42-121); ALT ALANINE AMINOTRANSFERASE 11 IU/L (10-60); AST ASPARTATE AMINOTRANSFERASE 12 IU/L (10-42); BILIRUBIN,TOTAL 0.3 mg/dL (0.2-1.0); BUN - BLOOD UREA NITROGEN 24 mg/dL (6-20); CALCIUM 8.8 mg/dL (8.5-10.3); CARBON DIOXIDE - CO2 31 mmol/L (21-32); CHLORIDE 101 mmol/L (101-111); CHOL/HDL RATIO 2.6 (<4.4); CHOLESTEROL 205 mg/dL; CREATININE 0.7 mg/dL (0.4-1.0); GFR - MDRD 86 (>89); GLUCOSE 105 mg/dL (70-100); HDL CHOLESTEROL 79 mg/dL; LDL CHOLESTEROL,CALCULATED 105 mg/dL; LDL/HDL RATIO 1.3 (<4.4); POTASSIUM 4.5 mmol/L (3.5-5.0); SODIUM 140 mmol/L (135-145); TOTAL PROTEIN 6.7 g/dL (6.7-8.2); TRIGLYCERIDES 104 mg/dL; VLDL CHOLESTEROL 21 mg/dL
[2022-01-25 10:36] LABS: THYROID STIMULATING HORMONE 0.51 uIU/mL (0.34-5.60)
[2022-01-25 12:47] LABS: ESTIMATED AVERAGE GLUCOSE 131 mg/dL (70-100); HEMOGLOBIN A1c% 6.2 % (4.27-6.07)
== END 2022-01-25 09:39 | disposition home or self-care (01) ==
LOC: LAB 09:38
PROVIDERS: ATTEND Physician Assistant
DX: E78.5 Hyperlipidemia, unspecified (principal); Z13.9 Encounter for screening, unspecified; E55.9 Vitamin D deficiency, unspecified; Z13.1 Encounter for screening for diabetes mellitus; Z13.29 Encounter for screening for other suspected endocrine disorder
CPT/HCPCS: 36415; 80053; 80061; 82306; 83036; 83721; 84443; 85025

== ENCOUNTER 2022-10-18 09:47 | Outpatient (CLI) | payer OTHER ==
--- NOTE | 2022-10-21 13:45 | Mammography Report ---
BILATERAL DIGITAL SCREENING MAMMOGRAM 3D/2D: 10/18/2022 CLINICAL: Routine screening. Comparison is made to exams dated: 09/10/2018 mammogram, 01/26/2016 mammogram, and 07/28/2014 mammogram - [facility]. Both breasts are heterogeneously dense, which may obscure small masses (category c / 51-75% glandular tissue). There is a benign calcification in the right breast. There also are benign calcifications in the lef t breast. Additionally, there are benign post operative findings in the right breast. Additionally, there also is a biopsy clip in the left breast. No significant masses, calcifications, or other findings are seen in either breast. There has been no significant interval change. IMPRESSION: BENIGN There is no mammographic evidence of malignancy. A 1 year screening mammogram is recommended. Based on the Tyrer Cuzick model (a risk assessment model) the patients lifetime risk is 12.9% and he r 10 year risk is 5.3%. According to the ACR, ACS, and NCCN guidelines, an annual breast MRI exam al ng with mammogram is recommended if the patients lifetime risk is 20% or greater. This exam was interpreted at Station ID: [id number]. NOTE: For mammograms, a report in lay terms will be sent to the patient. Approximately 15% of breast malignancies will not be visualized mammographically. In the management of a palpable breast mass, a negative mammogram must not discourage biopsy of a clinically suspicious lesion. Electronically Signed By: Tereso leach/price:10/18/2022 14:34:13 letter sent: No_Letter ACR BI-RADS Category 2: Benign Finding(s) 3342F PARENCHYMAL PATTERN: (D) - The breast(s) demonstrate(s) heterogeneously dense fibroglandular parenchy ma. BI-RADS CATEGORY: (2) - 2 Mammogram [id number] 1 year screening LATERALITY: (B)
== END 2022-10-18 09:48 | disposition home or self-care (01) ==
LOC: DI 09:47
DX: Z12.31 Encounter for screening mammogram for malignant neoplasm of breast (principal)